=== PATIENT | male | born 1950 | race Caucasian/White ===

== ENCOUNTER → 2016-07-04 | Outpatient (CLI) | payer MEDICARE, OTHER | LOC: M SLEEP 19:21 | PROVIDERS: ATTEND Nurse Practitioner Adult Health | DX: G47.30 Sleep apnea, unspecified (principal) ==

== ENCOUNTER 2016-11-26 06:47 | Day surgery (SDC) | payer MEDICARE, OTHER ==
[~2016-11-26] VITALS: Ht 175.3 cm; Wt 163.3 kg
[~2016-11-26 06:47] MED LIST: ACET30TAB PO; AMLO5TAB2 PO; ATEN100T PO; CHLO125TA PO; ENOX150I3 SUBQ; LOSA100T36 PO; OMEP20CA3 PO; OMEP40CA2 PO; SIMV10TA2 PO; VIAG100T PO; VITA1CAP40 PO; WARF-18 PO
[2016-11-26] MEDS ORDERED: LR 1,000 ML IV ONE (07:00)
[2016-11-26] MEDS ORDERED: LIDOCAINE 2% INJ 100 MG/5 ML SDV (FOR ANES.) As Ordered ONE (07:58)
[2016-11-26] MEDS ORDERED: PROPOFOL 200 MG/20 ML VIAL As Ordered ONE (07:58)
[2016-11-26] MEDS ORDERED: fentaNYL 100 MCG/2 ML INJECTION (J3010) As Ordered ONE (07:59)
[2016-11-26] MEDS ORDERED: MIDAZOLAM INJ 2 MG/2 ML VIAL (J2250) As Ordered ONE (07:59)
[2016-11-26] MEDS ORDERED: ePHEDrine SULFATE 25 MG/5 ML(5MG/ML) SYRINGE As Ordered ONE (08:37)
--- NOTE | 2016-11-26 08:48 | ROOR ---
Patient Name: Sudarshan Camejo Procedure Date: 11/26/2016 8:06 AM Date of : 1950 Age: 66 Gender: Male Note Status: Finalized Procedure: Colonoscopy Indications: Screening for colorectal malignant neoplasm Providers: Angelito Young Jr, MD Referring MD: SHAWNEE JOSEPH MD Requesting Provider: SHAWNEE JOSEPH MD Medicines: Propofol per Anesthesia Complications: No immediate complications. Procedure: Pre-Anesthesia Assessment: - Prior to the procedure, a History and Physical was performed, and patient medications and allergies were reviewed. The patient is competent. The risks and benefits of the procedure and the sedation options and risks were discussed with the patient. All questions were answered and informed consent was obtained. Patient identification and proposed procedure were verified by the physician and the nurse in the pre-procedure area and in the procedure room. Mental Status Examination: alert and oriented. Airway Examination: normal oropharyngeal airway and neck mobility. Respiratory Examination: clear to auscultation. CV Examination: normal. ASA Grade Assessment: III - A patient with severe systemic disease. After reviewing the risks and benefits, the patient was deemed in satisfactory condition to undergo the procedure. The anesthesia plan was to use moderate sedation / analgesia (conscious sedation). Immediately prior to administration of medications, the patient was re-assessed for adequacy to receive sedatives. The heart rate, respiratory rate, oxygen saturations, blood pressure, adequacy of pulmonary ventilation, and response to care were monitored throughout the procedure. The physical status of the patient was re-assessed after the procedure. The Colonoscope was introduced through the anus and advanced to the cecum, identified by appendiceal orifice and ileocecal valve. The colonoscopy was performed without difficulty. The patient tolerated the procedure well. The quality of the bowel preparation was adequate and good. Findings: The rectum, recto-sigmoid colon, sigmoid colon, descending colon, transverse colon, appendiceal orifice and ileocecal valve appeared normal. Two polyps were found in the ascending colon and cecum. The polyps were diminutive in size. These polyps were removed with a jumbo cold forceps. Resection and retrieval were complete. Impression: - The rectum, recto-sigmoid colon, sigmoid colon, descending colon, transverse colon, appendiceal orifice and ileocecal valve are normal. - Two diminutive polyps in the ascending colon and in the cecum, removed with a jumbo cold forceps. Resected and retrieved. Recommendation: - Discharge patient to home (ambulatory). - Repeat colonoscopy in 5-10 years for surveillance based on pathology results. - Telephone my office for pathology results in 1 week. Angelito Young MD Angelito Young Jr, MD 11/26/2016 8:47:54 AM This report has been signed electronically. Number of Addenda: 0 Note Initiated On: 11/26/2016 8:06 AM Estimated Blood Loss: Estimated blood loss: none.
[2016-11-26 09:35] VITALS: BP 152/86
== END 2016-11-26 09:40 | disposition home or self-care (01) ==
LOC: M SDC 06:47
PROVIDERS: ATTEND Surgery
DX: Z12.11 Encounter for screening for malignant neoplasm of colon (principal); D12.0 Benign neoplasm of cecum; D12.2 Benign neoplasm of ascending colon; I10 Essential (primary) hypertension; K21.9 Gastro-esophageal reflux disease without esophagitis; E78.00 Pure hypercholesterolemia, unspecified; I73.9 Peripheral vascular disease, unspecified; M15.0 Primary generalized (osteo)arthritis; G47.33 Obstructive sleep apnea (adult) (pediatric); R06.83 Snoring; Z88.0 Allergy status to penicillin; Z79.899 Other long term (current) drug therapy; Z79.01 Long term (current) use of anticoagulants
CPT/HCPCS: 45380; 88305; J2250; J3010

== ENCOUNTER → 2018-08-08 | Outpatient (CLI) | payer MEDICARE, OTHER ==
[~2018-08-08] MED LIST changes: +ACET-716 PO; -ACET30TAB PO; -AMLO5TAB2 PO; +AMLO5TAB6 PO; -LOSA100T36 PO; +LOSA100T50 PO; -VITA1CAP40 PO; +VITA50005 PO
[2018-08-08 13:40] LABS: INR 1.86; PROTHROMBIN TIME 21.8 SECONDS (12.1-14.4)
== END ==
LOC: M WUC 10:20
PROVIDERS: ATTEND Physician Assistant
DX: I82.503 Chronic embolism and thrombosis of unspecified deep veins of lower extremity, bilateral (principal)

== ENCOUNTER → 2018-08-15 | Outpatient (CLI) | payer MEDICARE, OTHER ==
[2018-08-15 18:25] LABS: INR 1.84; PROTHROMBIN TIME 21.6 SECONDS (12.1-14.4)
== END ==
LOC: M WUC 14:45
PROVIDERS: ATTEND Physician Assistant
DX: I82.503 Chronic embolism and thrombosis of unspecified deep veins of lower extremity, bilateral (principal)